=== PATIENT | male | born 1970 | race Two or more races ===

== ENCOUNTER 2021-05-29 05:56 | Day surgery (SDC) | payer OTHER | END 2021-05-29 09:40 | disposition home or self-care (01) | LOC: AMB-ENDOS 05:56 | PROVIDERS: ATTEND Surgery | DX: K62.1 Rectal polyp (principal); K64.8 Other hemorrhoids; Z20.822 Contact with and (suspected) exposure to COVID-19 ==

== ENCOUNTER 2024-06-09 16:30 | Outpatient (CLI) | payer OTHER ==
[2024-06-09 17:13] LABS: INR 1.21
[2024-06-11] MEDS ORDERED: COZAAR25 MG PO (12:05)
[2024-06-11] MEDS ORDERED: COSOPT PF EYE1 EACH OPHT (12:06)
== END 2024-06-09 16:39 | disposition home or self-care (01) ==
LOC: LAB 16:30
PROVIDERS: ATTEND Internal Medicine Geriatric Medicine
DX: D68.9 Coagulation defect, unspecified (principal); A04.7 Enterocolitis due to Clostridium difficile

== ENCOUNTER 2024-06-18 08:00 | Outpatient (CLI) | payer OTHER ==
[~2024-06-18] VITALS: Ht 172.7 cm; Wt 78.0 kg
[~2024-06-18 08:00] MED LIST: COSOPT PF EYE1 EACH OPHT; COZAAR25 MG PO
[2024-06-18 09:39] LABS: INR 1.08; PROTHROMBIN TIME 11.7 SECONDS (9.0-11.5)
== END 2024-06-18 08:01 | disposition home or self-care (01) ==
LOC: LAB 08:00 → SURH 07-01 08:45 → EDSTATUS 07-01 11:00 → SURH 07-01 11:00
PROVIDERS: ATTEND Surgery
DX: K57.30 Diverticulosis of large intestine without perforation or abscess without bleeding (principal)

== ENCOUNTER 2024-07-29 14:19 | Inpatient (IN) | payer OTHER ==
[~2024-07-29] VITALS: Ht 172.7 cm; Wt 77.1 kg
--- NOTE | 2024-07-29 15:23 | NUR ---
PTE ALERTA,ESTABLE Y ORIENTADO.FRANK REFIERE QUE DESDE EL LUNES COMENZO CON EL DOLOR ABD Y LAS DIARRHEAS.
[2024-07-29] MEDS ORDERED: 0.9 % SODIUM CHLORIDE 1,000 ML IV STA (17:33)
[2024-07-29] MEDS ORDERED: MEPERIDINE HCL/PF 50 MG/ML VIAL IM STA (17:34)
[2024-07-29] MEDS ORDERED: PROMETHAZINE HCL 50 MG/ML AMPUL IM STA (17:34)
[2024-07-29] MEDS ORDERED: PIPERACILLIN/TAZOBACTAM SODIUM 4.5 GM VIAL IV STA (17:36)
[2024-07-29] MEDS ORDERED: HYOSCYAMINE SULFATE 0.125 MG TAB.SUBL SL ONE (17:45)
[2024-07-29] MEDS ORDERED: HYOSCYAMINE SULFATE 0.125 MG TAB.SUBL ONE (17:45)
[2024-07-29] MEDS ORDERED: PROMETHAZINE HCL 50 MG/ML AMPUL IM ONE (17:45)
--- NOTE | 2024-07-29 17:47 | NUR ---
SE EDUCA A PACIENTE SOBRE TRATAMIENTO MEDICO EL CUAL REFIERE ENTENDER, SE REALIZA COLECCION DE MUESTRAS BAJO MEDIDAS ASEPTICAS Y SE ADMINISTRA MEDICAMENTOS KEN ORDEN MEDICA.
[2024-07-29 18:13] LABS: HEMATOCRIT 44.7 % (39.0-48.0); HEMOGLOBIN 15.2 g/dL (13-16.00); MEAN CELL VOLUME 85.8 fL (80.0-100.00); MEAN CORPUSCULAR HEMOGLOBIN 29.1 pg (27.00-32.0); MEAN CORPUSCULAR HGB CONC 33.9 g/dl (32.0-36.0); PLATELET COUNT 258 K/uL (150-450); RED BLOOD COUNT 5.21 M/uL (4.00-6.00); RED CELL DISTRIBUTION WIDTH 16.7 % (11.5-14.5)
[2024-07-29 19:44] LABS: INR 1.1; PARTIAL THROMBOPLASTIN TIME 32.5 SECONDS (22.0-34.0); PROTHROMBIN TIME 11.9 SECONDS (9.0-11.5)
[2024-07-29 19:49] LABS: ALBUMIN 3.1 gm/dL (3.4-5.0); BILIRUBIN TOTAL 0.96 mg/dL (0.3-1.2); CREATININE SERUM 1.06 mg/dL (0.70-1.30); GFR 73.08; GLOBULINA 3.8 G/DL (2.4-3.5); TOTAL PROTEIN 6.9 gm/dL (6.4-8.2)
[2024-07-29 19:55] LABS: POTASSIUM 2.91 mEq/L (3.5-5.1)
[2024-07-29 22:14] LABS: PH,URINE 5.5 (5.0-8.0); URINE APPEARANCE Cloudy; URINE BILIRRUBIN Small (NEGATIVE); URINE BLOOD Negative; URINE COLOR Dark Yellow; URINE GLUCOSE Negative (NEGATIVE); URINE KETONE Trace (NEGATIVE); URINE LEUKOCYTE Small; URINE NITRATE Positive; URINE PROTEIN 30 (NEGATIVE)
[2024-07-29 22:18] LABS: URINE BACTERIA 20.8 uL (0.0-1933); URINE EPITHELIAL CELLS 35.4 uL (0.0-38.8); URINE RBC 27.5 uL (0.0-20.8); URINE WBC 11.3 uL (0.0-23.2)
[2024-07-29 22:41] LABS: URINE CAST 0.88 uL (0.0-1.40); URINE MUCUS HEAVY
[2024-07-29] MEDS ORDERED: 0.9 % SODIUM CHLORIDE 1,000 ML IV SCH (23:15)
[2024-07-29] MEDS ORDERED: CIPROFLOXACIN IN 5 % DEXTROSE 200 ML IV SCH (23:16)
[2024-07-29] MEDS ORDERED: MORPHINE SULFATE 2 MG/ML CARTRIDGE IV PRN (23:30)
[2024-07-29] MEDS ORDERED: ACETAMINOPHEN 500 MG GEL..CAP PO PRN (23:30)
[2024-07-29] MEDS ORDERED: ONDANSETRON HCL 4 MG in 0.9 % SODIUM CHLORIDE 50 ML IV PRN (23:30)
[2024-07-29 23:46] VITALS: BP 130/80
[2024-07-30] MEDS ORDERED: POTASSIUM CHLORIDE IN WATER 100 ML IV SCH ×2 (01:00→13:00)
[2024-07-30] MEDS ORDERED: METRONIDAZOLE/SODIUM CHLORIDE 100 ML IV SCH (01:00)
[2024-07-30 05:01] LABS: INR 1.07; PARTIAL THROMBOPLASTIN TIME 32.5 SECONDS (22.0-34.0); PROTHROMBIN TIME 11.6 SECONDS (9.0-11.5)
[2024-07-30 05:04] LABS: ALBUMIN 2.8 gm/dL (3.4-5.0); BILIRUBIN TOTAL 0.76 mg/dL (0.3-1.2); CALCIUM 8.7 mg/dL (8.5-10.1); CREATININE SERUM 0.98 mg/dL (0.70-1.30); GFR 80.01; GLOBULINA 3.7 G/DL (2.4-3.5); TOTAL PROTEIN 6.5 gm/dL (6.4-8.2)
[2024-07-30 07:17] LABS: POTASSIUM 2.81 mEq/L (3.5-5.1)
[2024-07-30 08:43] VITALS: BP 94/61; O2SAT 99
[2024-07-30] MEDS ORDERED: LOSARTAN POTASSIUM 25 MG TABLET PO SCH (09:00)
[2024-07-30] MEDS ORDERED: PANTOPRAZOLE SODIUM 40 MG/VIAL VIAL IV SCH (09:00)
[2024-07-30] MEDS ORDERED: ENOXAPARIN SODIUM 40 MG/0.4 ML SYRINGE SUBCUTANEO SCH (09:00)
[2024-07-30 14:07] LABS: ob POSITIVE (NEGATIVE)
[2024-07-30] MEDS ORDERED: AA 4.25%/CAL/LYTES/DEXT 5% 1,000 ML PERIFERAL SCH (17:00)
[2024-07-30] MEDS ORDERED: VANCOMYCIN HCL 125 MG/7.5 ML BLIST.PACK PO SCH (18:00)
[2024-07-30 19:49] VITALS: BP 108/66; O2SAT 98
[2024-07-31 00:45] VITALS: BP 96/62; O2SAT 95
[2024-07-31 07:46] LABS: HEMATOCRIT 37.1 % (39.0-48.0); HEMOGLOBIN 12.2 g/dL (13-16.00); MEAN CELL VOLUME 86.5 fL (80.0-100.00); MEAN CORPUSCULAR HEMOGLOBIN 28.5 pg (27.00-32.0); MEAN CORPUSCULAR HGB CONC 32.9 g/dl (32.0-36.0); PLATELET COUNT 230 K/uL (150-450); RED BLOOD COUNT 4.29 M/uL (4.00-6.00); RED CELL DISTRIBUTION WIDTH 15.9 % (11.5-14.5)
[2024-07-31 08:00] VITALS: BP 105/68; O2SAT 97
[2024-07-31 08:22] LABS: ALBUMIN 2.5 gm/dL (3.4-5.0); BILIRUBIN TOTAL 0.48 mg/dL (0.3-1.2); CALCIUM 8.3 mg/dL (8.5-10.1); CREATININE SERUM 0.55 mg/dL (0.70-1.30); GFR 155.82; GLOBULINA 2.9 G/DL (2.4-3.5); MAGNESIUM 1.8 mg/dL (1.8-2.4); PHOSPHOROUS 2.5 mg/dL (2.5-4.9); POTASSIUM 3.46 mEq/L (3.5-5.1); TOTAL PROTEIN 5.4 gm/dL (6.4-8.2)
[2024-07-31 08:24] LABS: C-REACTIVE PROTEIN 12.3 MG/DL (0.00-0.29)
[2024-07-31 16:00] VITALS: BP 127/82; O2SAT 96
[2024-08-01 01:51] VITALS: BP 143/85; O2SAT 96
[2024-08-01 08:00] VITALS: BP 137/80; O2SAT 100
[2024-08-01 16:00] VITALS: BP 150/84; O2SAT 97
[2024-08-01] MEDS ORDERED: LACTOBACILLUS ACIDOPHILUS 1 CAP CAP PO SCH (17:00)
[2024-08-02] VITALS: BP 134/75; O2SAT 96
[2024-08-02 08:00] VITALS: BP 134/90; O2SAT 97
[2024-08-02 16:00] VITALS: BP 135/76; O2SAT 95
[2024-08-03] VITALS: BP 131/74; O2SAT 98
[2024-08-03 06:56] LABS: INR 1.16; PROTHROMBIN TIME 12.5 SECONDS (9.0-11.5)
[2024-08-03 07:12] LABS: ALBUMIN 2.7 gm/dL (3.4-5.0); ALKALINE PHOSPHATASE 64 U/L (50-136); ALT/SGPT 80 U/L (12-78); ANION GAP 8 (10.0-20.0); AST/SGOT 203 U/L (15-37); BILIRUBIN TOTAL 0.31 mg/dL (0.3-1.2); BILIRUBIN,CONJUGATED < 0.10 mg/dL (0.0-0.2); BILIRUBIN,UNCONJUGATED 0.21 mg/dL (0.0-0.6); BLOOD UREA NITROGEN 7 mg/dL (7-18); BUN CREA RATIO 15 (7.0-25.0); CARBON DIOXIDE 31 mEq/L (21-32); CHLORIDE 105 mmol/L (98-107); CHOL HDL RATIO 4.4 (0-5.0); CHOLESTEROL 136 mg/dL (0-200); CREATININE SERUM 0.48 mg/dL (0.70-1.30); GFR 182.33; GLOBULINA 2.9 G/DL (2.4-3.5); GLUCOSE FASTING 98 mg/dL (65-100); HDL 31 mg/dl (40-60); LDL 81 mg/dl (0-130); OSMOLALITY SERUM 277 MOSM/KG (275-295); POTASSIUM 3.58 mEq/L (3.5-5.1); SODIUM 140 mmol/L (136-145); TOTAL PROTEIN 5.6 gm/dL (6.4-8.2); TRIGLYCERIDES 122 mg/dL (0-150); VLDL 24 (0-39)
[2024-08-03 07:45] LABS: HEMATOCRIT 36.9 % (39.0-48.0); HEMOGLOBIN 12.4 g/dL (13-16.00); MEAN CELL VOLUME 85.2 fL (80.0-100.00); MEAN CORPUSCULAR HEMOGLOBIN 28.7 pg (27.00-32.0); MEAN CORPUSCULAR HGB CONC 33.7 g/dl (32.0-36.0); PLATELET COUNT 344 K/uL (150-450); RED BLOOD COUNT 4.33 M/uL (4.00-6.00)
[2024-08-03 08:30] LABS: UREA CLEARANCE 57.1 ML/MIN
[2024-08-03 09:00] VITALS: BP 127/88; O2SAT 97
[2024-08-03 16:01] VITALS: BP 142/91; O2SAT 95
[2024-08-04] VITALS: BP 156/98; O2SAT 97
[2024-08-04 07:44] LABS: ALBUMIN 2.9 gm/dL (3.4-5.0); BILIRUBIN TOTAL 0.4 mg/dL (0.3-1.2); BILIRUBIN,CONJUGATED 0.12 mg/dL (0.0-0.2); BILIRUBIN,UNCONJUGATED 0.28 mg/dL (0.0-0.6); TOTAL PROTEIN 5.9 gm/dL (6.4-8.2)
[2024-08-04] MEDS ORDERED: DIATRIZOATE MEGLUMINE, SODIUM 30 ML BOTTLE PO STA ×2 (07:50→08:22)
[2024-08-04 08:40] VITALS: BP 156/89; O2SAT 95
[2024-08-04 16:17] VITALS: BP 165/90; O2SAT 98
[2024-08-05 00:01] VITALS: BP 124/81; O2SAT 96
[2024-08-05 08:00] VITALS: BP 136/94; O2SAT 98
[2024-08-05 16:00] VITALS: BP 127/87; O2SAT 97
[2024-08-05] MEDS ORDERED: PIPERACILLIN/TAZOBACTAM SODIUM 3.375 GM in DEXTROSE 5 % IN WATER 100 ML IV SCH (18:00)
[2024-08-06 00:43] VITALS: BP 115/73; O2SAT 97
[2024-08-06 07:59] LABS: HEMATOCRIT 41.4 % (39.0-48.0); HEMOGLOBIN 13.8 g/dL (13-16.00); MEAN CELL VOLUME 85.9 fL (80.0-100.00); MEAN CORPUSCULAR HEMOGLOBIN 28.6 pg (27.00-32.0); MEAN CORPUSCULAR HGB CONC 33.3 g/dl (32.0-36.0); PLATELET COUNT 431 K/uL (150-450); RED BLOOD COUNT 4.82 M/uL (4.00-6.00); RED CELL DISTRIBUTION WIDTH 16.1 % (11.5-14.5)
[2024-08-06 08:11] VITALS: BP 123/79; O2SAT 96
[2024-08-06 08:28] LABS: BILIRUBIN TOTAL 0.49 mg/dL (0.3-1.2); BILIRUBIN,CONJUGATED 0.15 mg/dL (0.0-0.2); BILIRUBIN,UNCONJUGATED 0.34 mg/dL (0.0-0.6); CALCIUM 9.4 mg/dL (8.5-10.1); CREATININE SERUM 0.76 mg/dL (0.70-1.30); GFR 107.29; MAGNESIUM 2.1 mg/dL (1.8-2.4); PHOSPHOROUS 4.8 mg/dL (2.5-4.9); POTASSIUM 3.99 mEq/L (3.5-5.1); TOTAL PROTEIN 6.1 gm/dL (6.4-8.2)
[2024-08-06 08:29] LABS: C-REACTIVE PROTEIN 1.01 MG/DL (0.00-0.29)
[2024-08-06] MEDS ORDERED: fentaNYL CITRATE 50 MCG/ML AMPUL IV PUSH ONE (16:30)
[2024-08-06] MEDS ORDERED: MIDAZOLAM HCL 2 MG/2 ML VIAL IV PUSH ONE (16:30)
[2024-08-07 00:35] VITALS: BP 119/73; O2SAT 100
[2024-08-07 08:41] VITALS: BP 125/81; O2SAT 97
[2024-08-07 16:25] VITALS: BP 120/75
[2024-08-08 01:00] VITALS: BP 122/76; O2SAT 98
[2024-08-08 08:00] VITALS: BP 126/86; O2SAT 98
[2024-08-08 16:01] VITALS: BP 104/74; O2SAT 100
[2024-08-09] VITALS: BP 148/90; O2SAT 100
[2024-08-09 08:00] VITALS: BP 121/82; O2SAT 96
[2024-08-09 08:04] LABS: ALBUMIN 2.9 gm/dL (3.4-5.0); BILIRUBIN TOTAL 0.47 mg/dL (0.3-1.2); CREATININE SERUM 0.81 mg/dL (0.70-1.30); GFR 99.68; GLOBULINA 2.9 G/DL (2.4-3.5); MAGNESIUM 2.2 mg/dL (1.8-2.4); PHOSPHOROUS 3.6 mg/dL (2.5-4.9); POTASSIUM 4.03 mEq/L (3.5-5.1); TOTAL PROTEIN 5.8 gm/dL (6.4-8.2)
[2024-08-09 08:06] LABS: C-REACTIVE PROTEIN 0.42 MG/DL (0.00-0.29)
[2024-08-09 08:12] LABS: HEMATOCRIT 37.8 % (39.0-48.0); HEMOGLOBIN 12.9 g/dL (13-16.00); MEAN CORPUSCULAR HEMOGLOBIN 28.9 pg (27.00-32.0); PLATELET COUNT 356 K/uL (150-450); RED BLOOD COUNT 4.45 M/uL (4.00-6.00); RED CELL DISTRIBUTION WIDTH 16.4 % (11.5-14.5)
[2024-08-09 16:42] VITALS: BP 137/88; O2SAT 100
[2024-08-10] VITALS: BP 118/80; O2SAT 98
[2024-08-10 08:52] VITALS: BP 135/84; O2SAT 98
[2024-08-10 17:21] VITALS: BP 140/91; O2SAT 100
[2024-08-11 00:30] VITALS: BP 135/74; O2SAT 100
[2024-08-11 08:00] VITALS: BP 116/83; O2SAT 97
[2024-08-11] MEDS ORDERED: INTESTINEX680 M1 PO (08:28)
[2024-08-11] MEDS ORDERED: PROTONIX40 MG PO (08:29)
== END 2024-08-11 10:27 | disposition home or self-care (01) | DRG 372 ==
LOC: ER 14:21 → SURH 23:20
PROVIDERS: General Practice; Internal Medicine Geriatric Medicine; Internal Medicine Infectious Disease; ADMIT Surgery; ATTEND Surgery
PROC: BW21ZZZ Computerized Tomography (CT Scan) of Abdomen and Pelvis (ICD-10-PCS; principal; 2024-07-29)
PROC: 02HV33Z Insertion of Infusion Device into Superior Vena Cava, Percutaneous Approach (ICD-10-PCS; 2024-07-30)
PROC: 8E0ZXY6 Isolation (ICD-10-PCS; 2024-07-30)
PROC: BW40ZZZ Ultrasonography of Abdomen (ICD-10-PCS; 2024-08-03)
PROC: BW21YZZ Computerized Tomography (CT Scan) of Abdomen and Pelvis using Other Contrast (ICD-10-PCS; 2024-08-04)
PROC: 0W9F3ZZ Drainage of Abdominal Wall, Percutaneous Approach (ICD-10-PCS; 2024-08-06)
DX: A04.72 Enterocolitis due to Clostridium difficile, not specified as recurrent (principal); N39.0 Urinary tract infection, site not specified; E87.6 Hypokalemia; K57.30 Diverticulosis of large intestine without perforation or abscess without bleeding; I10 Essential (primary) hypertension; D12.8 Benign neoplasm of rectum

== ENCOUNTER 2024-08-25 08:30 | Inpatient (IN) | payer OTHER ==
[~2024-08-25] VITALS: Ht 172.7 cm; Wt 72.6 kg
[~2024-08-25 08:30] MED LIST changes: +INTESTINEX680 M1 PO; +PROTONIX40 MG PO
[2024-08-25 09:25] LABS: HEMATOCRIT 43.3 % (39.0-48.0); HEMOGLOBIN 14.5 g/dL (13-16.00); MEAN CELL VOLUME 85.8 fL (80.0-100.00); MEAN CORPUSCULAR HEMOGLOBIN 28.8 pg (27.00-32.0); MEAN CORPUSCULAR HGB CONC 33.5 g/dl (32.0-36.0); PLATELET COUNT 286 K/uL (150-450); RED BLOOD COUNT 5.05 M/uL (4.00-6.00); RED CELL DISTRIBUTION WIDTH 16.7 % (11.5-14.5)
[2024-08-25 09:32] LABS: PH,URINE 6.5 (5.0-8.0); URINE APPEARANCE Clear; URINE BILIRRUBIN Negative (NEGATIVE); URINE BLOOD Negative; URINE COLOR Yellow; URINE GLUCOSE Negative (NEGATIVE); URINE KETONE Negative (NEGATIVE); URINE LEUKOCYTE Trace; URINE NITRATE Negative; URINE PROTEIN Negative (NEGATIVE); URINE UROBILINOGEN 0.2 E.U./dl
[2024-08-25 09:33] LABS: URINE BACTERIA 6.1 uL (0.0-1933); URINE EPITHELIAL CELLS 1.5 uL (0.0-38.8); URINE WBC 4.2 uL (0.0-23.2)
[2024-08-25 09:37] LABS: URINE RBC 1.6 uL (0.0-20.8)
[2024-08-25 10:05] LABS: INR 1.05; PARTIAL THROMBOPLASTIN TIME 37.1 SECONDS (22.0-34.0); PROTHROMBIN TIME 11.4 SECONDS (9.0-11.5)
[2024-08-25 10:32] LABS: ALBUMIN 3.8 gm/dL (3.4-5.0); BILIRUBIN TOTAL 0.99 mg/dL (0.3-1.2); CALCIUM 9.6 mg/dL (8.5-10.1); CREATININE SERUM 0.72 mg/dL (0.70-1.30); GFR 114.19; GLOBULINA 3.4 G/DL (2.4-3.5); POTASSIUM 4.36 mEq/L (3.5-5.1); TOTAL PROTEIN 7.2 gm/dL (6.4-8.2)
[2024-08-31] MEDS ORDERED: CEFTRIAXONE SODIUM 2,000 MG VIAL IV ONE (13:30)
[2024-08-31] MEDS ORDERED: METRONIDAZOLE/SODIUM CHLORIDE 500 MG/100 ML PIGGYBACK IV ONE (13:30)
[2024-08-31] MEDS ORDERED: ONDANSETRON HCL 2 MG/ML VIAL IV PRN (16:15)
[2024-08-31] MEDS ORDERED: RINGERS SOLUTION,LACTATED 1,000 ML IV SCH (16:15)
[2024-08-31] MEDS ORDERED: MORPHINE SULFATE 4 MG/ML CARTRIDGE IV PRN (16:15)
[2024-08-31] MEDS ORDERED: OxyCODONE HCL 5 MG TABLET (ROXICODONE) PO PRN (16:15)
[2024-08-31] MEDS ORDERED: SUGAMMADEX SODIUM 200 MG/2 ML VIAL IV ONE (16:15)
[2024-08-31] MEDS ORDERED: MORPHINE SULFATE 4 MG/ML VIAL IV ONE ×2 (16:35→17:05)
[2024-08-31] MEDS ORDERED: METOCLOPRAMIDE HCL 5 MG/ML VIAL IV SCH (17:00)
[2024-08-31] MEDS ORDERED: GABAPENTIN 300 MG CAPSULE PO SCH (17:00)
[2024-08-31] MEDS ORDERED: SIMETHICONE 125 MG CAPSULE PO SCH (17:00)
[2024-08-31] MEDS ORDERED: HYOSCYAMINE SULFATE 0.125 MG TAB.SUBL SL SCH (17:00)
[2024-08-31 18:17] LABS: HEMATOCRIT 46.1 % (39.0-48.0); HEMOGLOBIN 15.1 g/dL (13-16.00); MEAN CELL VOLUME 87.5 fL (80.0-100.00); MEAN CORPUSCULAR HEMOGLOBIN 28.7 pg (27.00-32.0); MEAN CORPUSCULAR HGB CONC 32.7 g/dl (32.0-36.0); PLATELET COUNT 226 K/uL (150-450); RED BLOOD COUNT 5.27 M/uL (4.00-6.00); RED CELL DISTRIBUTION WIDTH 15.6 % (11.5-14.5)
[2024-08-31] MEDS ORDERED: ENALAPRILAT DIHYDRATE 1.25 MG/ML VIAL IV PRN (18:30)
[2024-08-31] MEDS ORDERED: ACETAMINOPHEN 500 MG GEL..CAP PO SCH (20:00)
[2024-08-31] MEDS ORDERED: CELECOXIB 200 MG CAPSULE PO SCH (21:00)
[2024-08-31] MEDS ORDERED: FAMOTIDINE/PF 20 MG/2 ML VIAL IV PUSH SCH (21:00)
[2024-09-01] VITALS: BP 165/89; O2SAT 96
[2024-09-01] MEDS ORDERED: MEROPENEM 500 MG/VIAL VIAL IV SCH ×2 (05:00→20:00)
[2024-09-01 06:48] LABS: HEMATOCRIT 40.5 % (39.0-48.0); HEMOGLOBIN 13.7 g/dL (13-16.00); MEAN CELL VOLUME 86.1 fL (80.0-100.00); MEAN CORPUSCULAR HEMOGLOBIN 29.1 pg (27.00-32.0); MEAN CORPUSCULAR HGB CONC 33.8 g/dl (32.0-36.0); PLATELET COUNT 263 K/uL (150-450); RED BLOOD COUNT 4.71 M/uL (4.00-6.00)
[2024-09-01 07:23] LABS: ALBUMIN 3.1 gm/dL (3.4-5.0); CALCIUM 8.6 mg/dL (8.5-10.1); CALCIUM 8.8 mg/dL (8.5-10.1); CREATININE SERUM 0.95 mg/dL (0.70-1.30); GFR 78.16; GFR 82.93; MAGNESIUM 2.1 mg/dL (1.8-2.4); PHOSPHOROUS 3.5 mg/dL (2.5-4.9); POTASSIUM 4.44 mEq/L (3.5-5.1); POTASSIUM 5.08 mEq/L (3.5-5.1)
[2024-09-01 08:00] VITALS: BP 146/98; O2SAT 96
[2024-09-01] MEDS ORDERED: VANCOMYCIN HCL 1,000 MG VIAL IV SCH (09:00)
[2024-09-01] MEDS ORDERED: LACTOBACILLUS ACIDOPHILUS 1 CAP CAP PO SCH (09:00)
[2024-09-01] MEDS ORDERED: LOSARTAN POTASSIUM 25 MG TABLET PO SCH (09:00)
[2024-09-01 15:50] VITALS: BP 130/83; O2SAT 98
[2024-09-01] MEDS ORDERED: ENOXAPARIN SODIUM 40 MG/0.4 ML SYRINGE SUBCUTANEO SCH (17:00)
[2024-09-02 00:34] VITALS: BP 105/68; O2SAT 97
[2024-09-02 06:56] LABS: HEMATOCRIT 32.2 % (39.0-48.0); HEMOGLOBIN 10.9 g/dL (13-16.00); MEAN CORPUSCULAR HEMOGLOBIN 28.9 pg (27.00-32.0); PLATELET COUNT 238 K/uL (150-450); RED BLOOD COUNT 3.79 M/uL (4.00-6.00); RED CELL DISTRIBUTION WIDTH 16.1 % (11.5-14.5)
[2024-09-02 07:09] LABS: ALBUMIN 2.7 gm/dL (3.4-5.0); BILIRUBIN TOTAL 0.58 mg/dL (0.3-1.2); CALCIUM 8.7 mg/dL (8.5-10.1); CREATININE SERUM 0.81 mg/dL (0.70-1.30); GFR 99.68; GLOBULINA 2.9 G/DL (2.4-3.5); MAGNESIUM 2.1 mg/dL (1.8-2.4); POTASSIUM 4.04 mEq/L (3.5-5.1); TOTAL PROTEIN 5.6 gm/dL (6.4-8.2)
[2024-09-02 07:19] LABS: C-REACTIVE PROTEIN 15.3 MG/DL (0.00-0.29); PHOSPHOROUS 1.5 mg/dL (2.5-4.9)
[2024-09-02 08:00] VITALS: BP 115/73; O2SAT 96
[2024-09-02] MEDS ORDERED: SOD FERRIC GLUC COMPLX/SUCROSE 62.5 MG in 0.9 % SODIUM CHLORIDE 50 ML IV SCH (09:00)
[2024-09-02] MEDS ORDERED: POTASSIUM PHOS,M-BASIC-D-BASIC 15 MM in 0.9 % SODIUM CHLORIDE 250 ML IV NR (09:00)
[2024-09-02] MEDS ORDERED: Cyanocobalamin/Mecobalamin 1 TAB.SL SL SCH (09:00)
[2024-09-02] MEDS ORDERED: ENOXAPARIN SODIUM 40 MG/0.4 ML SYRINGE SUBCUTANEO SCH (09:00)
[2024-09-02 09:51] LABS: PH,URINE 5.5 (5.0-8.0); URINE APPEARANCE Clear; URINE BILIRRUBIN Negative (NEGATIVE); URINE BLOOD Negative; URINE COLOR Yellow; URINE GLUCOSE Negative (NEGATIVE); URINE KETONE 15 (NEGATIVE); URINE LEUKOCYTE Negative; URINE NITRATE Negative; URINE PROTEIN Trace (NEGATIVE); URINE UROBILINOGEN 0.2 E.U./dl
[2024-09-02 09:58] LABS: URINE BACTERIA 6.1 uL (0.0-1933); URINE EPITHELIAL CELLS 12.6 uL (0.0-38.8); URINE RBC 9.4 uL (0.0-20.8); URINE WBC 23.2 uL (0.0-23.2)
[2024-09-02 16:05] VITALS: BP 106/71; O2SAT 96
[2024-09-02] MEDS ORDERED: MORPHINE SULFATE 4 MG/ML CARTRIDGE IV PRN (16:45)
[2024-09-02] MEDS ORDERED: PANTOPRAZOLE SODIUM 40 MG/VIAL VIAL IV SCH (17:15)
[2024-09-02] MEDS ORDERED: SUCRALFATE 1 G TABLET PO NR (18:00)
[2024-09-02] MEDS ORDERED: PROMETHAZINE HCL 25 MG/ML AMPUL IM ONE (23:45)
[2024-09-03] VITALS: BP 144/89; O2SAT 97
[2024-09-03 08:04] LABS: HEMATOCRIT 27.9 % (39.0-48.0); HEMOGLOBIN 9.3 g/dL (13-16.00); MEAN CELL VOLUME 85.9 fL (80.0-100.00); MEAN CORPUSCULAR HEMOGLOBIN 28.7 pg (27.00-32.0); MEAN CORPUSCULAR HGB CONC 33.4 g/dl (32.0-36.0); PLATELET COUNT 227 K/uL (150-450); RED BLOOD COUNT 3.25 M/uL (4.00-6.00); RED CELL DISTRIBUTION WIDTH 15.9 % (11.5-14.5)
[2024-09-03 08:12] LABS: CALCIUM 8.2 mg/dL (8.5-10.1); CREATININE SERUM 0.59 mg/dL (0.70-1.30); GFR 143.69; MAGNESIUM 1.8 mg/dL (1.8-2.4); POTASSIUM 3.85 mEq/L (3.5-5.1)
[2024-09-03 08:34] LABS: PHOSPHOROUS 1.5 mg/dL (2.5-4.9)
[2024-09-03] MEDS ORDERED: AMINO ACIDS 4.25%/DEXTROSE 10% 1,000 ML CENTRAL SCH (08:45)
[2024-09-03] MEDS ORDERED: POTASSIUM PHOS,M-BASIC-D-BASIC 15 MM in 0.9 % SODIUM CHLORIDE 250 ML IV NR (09:00)
[2024-09-03] MEDS ORDERED: SUCRALFATE 1 G TABLET PO SCH (09:00)
[2024-09-03 11:07] VITALS: BP 135/84; O2SAT 99
[2024-09-03] MEDS ORDERED: AA 5 % NO.6/DEXTROSE 15 % 2,000 ML IV SCH (17:00)
[2024-09-04 00:32] VITALS: BP 157/80; O2SAT 100
[2024-09-04 06:56] LABS: HEMATOCRIT 26.8 % (39.0-48.0); HEMOGLOBIN 9.5 g/dL (13-16.00); MEAN CELL VOLUME 84.6 fL (80.0-100.00); MEAN CORPUSCULAR HEMOGLOBIN 29.8 pg (27.00-32.0); MEAN CORPUSCULAR HGB CONC 35.2 g/dl (32.0-36.0); PLATELET COUNT 161 K/uL (150-450); RED BLOOD COUNT 3.17 M/uL (4.00-6.00)
[2024-09-04 07:52] LABS: CALCIUM 8.1 mg/dL (8.5-10.1); CREATININE SERUM 0.33 mg/dL (0.70-1.30); GFR 280.95; MAGNESIUM 1.8 mg/dL (1.8-2.4); POTASSIUM 4.09 mEq/L (3.5-5.1)
[2024-09-04 08:00] VITALS: BP 154/94; O2SAT 98
[2024-09-04 08:51] LABS: PHOSPHOROUS 1.9 mg/dL (2.5-4.9)
[2024-09-04] MEDS ORDERED: POTASSIUM PHOS,M-BASIC-D-BASIC 3 MM/ML VIAL IV NR (10:15)
[2024-09-04] MEDS ORDERED: ENALAPRILAT DIHYDRATE 1.25 MG/ML VIAL IV SCH (12:00)
[2024-09-04 16:16] VITALS: BP 153/85; O2SAT 98
[2024-09-04] MEDS ORDERED: AA 5 % NO.6/DEXTROSE 15 % 2,000 ML CENTRAL SCH (17:00)
[2024-09-04 19:44] VITALS: BP 164/64; O2SAT 95
[2024-09-04] MEDS ORDERED: VANCOMYCIN HCL 5 MG/ML REDILUIDO IV SCH (21:00)
[2024-09-05 00:28] VITALS: BP 154/90; O2SAT 98
[2024-09-05] MEDS ORDERED: ENALAPRILAT DIHYDRATE 1.25 MG/ML VIAL IV PRN (06:45)
[2024-09-05 09:11] VITALS: BP 177/93; O2SAT 97
[2024-09-05 17:58] VITALS: BP 138/88; O2SAT 99
[2024-09-05 23:36] VITALS: BP 145/85; O2SAT 100
[2024-09-06 07:46] VITALS: BP 160/90; O2SAT 95
[2024-09-06 16:19] VITALS: BP 160/79; O2SAT 100
[2024-09-06 18:53] VITALS: BP 152/80; O2SAT 98
[2024-09-07 00:27] VITALS: BP 147/89; O2SAT 98
[2024-09-07 08:00] VITALS: BP 151/89; O2SAT 93
[2024-09-07 16:24] VITALS: BP 159/91; O2SAT 96
[2024-09-07 23:45] VITALS: BP 114/84; O2SAT 96
[2024-09-08 06:22] LABS: MEAN CELL VOLUME 84.8 fL (80.0-100.00); MEAN CORPUSCULAR HGB CONC 33.8 g/dl (32.0-36.0); PLATELET COUNT 423 K/uL (150-450); RED BLOOD COUNT 2.95 M/uL (4.00-6.00); RED CELL DISTRIBUTION WIDTH 14.7 % (11.5-14.5)
[2024-09-08 06:27] LABS: HEMOGLOBIN 8.4 g/dL (13-16.00); MEAN CORPUSCULAR HEMOGLOBIN 28.4 pg (27.00-32.0)
[2024-09-08 06:44] LABS: ALBUMIN 2.1 gm/dL (3.4-5.0); BILIRUBIN TOTAL 0.41 mg/dL (0.3-1.2); CALCIUM 8.2 mg/dL (8.5-10.1); CREATININE SERUM 0.4 mg/dL (0.70-1.30); GFR 225.02; GLOBULINA 2.8 G/DL (2.4-3.5); MAGNESIUM 1.6 mg/dL (1.8-2.4); PHOSPHOROUS 3.1 mg/dL (2.5-4.9); POTASSIUM 3.18 mEq/L (3.5-5.1); TOTAL PROTEIN 4.9 gm/dL (6.4-8.2)
[2024-09-08 06:49] LABS: C-REACTIVE PROTEIN 7.21 MG/DL (0.00-0.29)
[2024-09-08 08:00] VITALS: BP 140/84; O2SAT 95
[2024-09-08] MEDS ORDERED: PANTOPRAZOLE SODIUM 40 MG/VIAL VIAL IV PUSH SCH (09:00)
[2024-09-08] MEDS ORDERED: MAGNESIUM SULFATE IN WATER 50 ML IV NR (10:00)
[2024-09-08] MEDS ORDERED: POTASSIUM CHLORIDE 20MEQ/100ML H2O PB IV NR (12:00)
[2024-09-08] MEDS ORDERED: IRON FUM,PS/FOLIC ACID/VITC/B3 1 CAP CAPSULE PO NR (12:00)
[2024-09-08 16:24] VITALS: BP 134/85; O2SAT 99
[2024-09-09 00:49] VITALS: BP 127/77; O2SAT 96
[2024-09-09 08:40] VITALS: BP 149/81; O2SAT 98
[2024-09-09] MEDS ORDERED: IRON FUM,PS/FOLIC ACID/VITC/B3 1 CAP CAPSULE PO SCH (09:00)
[2024-09-09] MEDS ORDERED: LINEZOLID600 MG PO (15:17)
[2024-09-09] MEDS ORDERED: INTESTINEX680 M1 PO (15:18)
[2024-09-09] MEDS ORDERED: CELECOXIB200 MG PO (15:18)
[2024-09-09] MEDS ORDERED: LEVSIN/SL0.125 MG SL (15:18)
[2024-09-09] MEDS ORDERED: PROTONIX40 MG PO (15:19)
[2024-09-09 16:00] VITALS: BP 138/85; O2SAT 99
== END 2024-09-09 17:08 | disposition home or self-care (01) | DRG 329 ==
LOC: SURH 08-31 08:30 → SURG 08-31 09:12 → O/R 08-31 09:12 → SURH 08-31 11:45 → SURG 08-31 16:43
PROVIDERS: Internal Medicine Geriatric Medicine; Internal Medicine Infectious Disease; ADMIT Surgery; ATTEND Surgery
PROC: 0DBP4ZZ Excision of Rectum, Percutaneous Endoscopic Approach (ICD-10-PCS; 2024-08-31)
PROC: 0DQ84ZZ Repair Small Intestine, Percutaneous Endoscopic Approach (ICD-10-PCS; 2024-08-31)
PROC: 0DNW4ZZ Release Peritoneum, Percutaneous Endoscopic Approach (ICD-10-PCS; 2024-08-31)
PROC: 0W9G4ZZ Drainage of Peritoneal Cavity, Percutaneous Endoscopic Approach (ICD-10-PCS; 2024-08-31)
PROC: 0DQN4ZZ Repair Sigmoid Colon, Percutaneous Endoscopic Approach (ICD-10-PCS; 2024-08-31)
PROC: 0DJD8ZZ Inspection of Lower Intestinal Tract, Via Natural or Artificial Opening Endoscopic (ICD-10-PCS; 2024-08-31)
PROC: 0DTN4ZZ Resection of Sigmoid Colon, Percutaneous Endoscopic Approach (ICD-10-PCS; principal; 2024-08-31 11:45)
PROC: 0D9670Z Drainage of Stomach with Drainage Device, Via Natural or Artificial Opening (ICD-10-PCS; 2024-09-03)
PROC: B54NZZZ Ultrasonography of Left Upper Extremity Veins (ICD-10-PCS; 2024-09-08)
PROC: 02HV33Z Insertion of Infusion Device into Superior Vena Cava, Percutaneous Approach (ICD-10-PCS; 2024-09-08)
DX: K57.20 Diverticulitis of large intestine with perforation and abscess without bleeding (principal); K65.1 Peritoneal abscess; K65.8 Other peritonitis; K91.71 Accidental puncture and laceration of a digestive system organ or structure during a digestive system procedure; K92.0 Hematemesis; K66.0 Peritoneal adhesions (postprocedural) (postinfection); E78.5 Hyperlipidemia, unspecified; D72.828 Other elevated white blood cell count; G25.1 Drug-induced tremor; R00.0 Tachycardia, unspecified; T45.4X5A Adverse effect of iron and its compounds, initial encounter; Y92.230 Patient room in hospital as the place of occurrence of the external cause; D64.89 Other specified anemias; R19.7 Diarrhea, unspecified; I80.8 Phlebitis and thrombophlebitis of other sites